=== PATIENT | female | born 1965 | race Caucasian/White ===

== ENCOUNTER 2016-11-09 19:45 | Emergency (ER) | payer MEDICAID, MEDICARE ==
[~2016-11-09] VITALS: Ht 149.9 cm; Wt 51.0 kg
[~2016-11-09 19:45] MED LIST: ASPI-864; ATEN50TA; AXID; CITA10TA9; MELO-57; NAPR550T4; SIMV40TA5; TAP5; TRAM50TA3; TRAZ-129; [UNRECOGNIZED DRUG - OTHER]
[2016-11-09] MEDS ORDERED: KETOROLAC 60MG/2ML VIAL IM ONE (22:00)
[2016-11-09 22:30] VITALS: BP 139/81
== END 2016-11-09 23:52 | disposition home or self-care (01) ==
LOC: ER 22:08
DX: M25.572 Pain in left ankle and joints of left foot (principal); M79.672 Pain in left foot; Z79.82 Long term (current) use of aspirin; I10 Essential (primary) hypertension; E78.00 Pure hypercholesterolemia, unspecified; E05.90 Thyrotoxicosis, unspecified without thyrotoxic crisis or storm; Z90.710 Acquired absence of both cervix and uterus; Z90.49 Acquired absence of other specified parts of digestive tract; F17.210 Nicotine dependence, cigarettes, uncomplicated; W22.8XXA Striking against or struck by other objects, initial encounter; Y93.89 Activity, other specified; Y92.018 Other place in single-family (private) house as the place of occurrence of the external cause
CPT/HCPCS: 73610; 73630; 96372; 99284; J1885; Z7610